=== PATIENT | female | born 1980 | race Caucasian/White ===

== ENCOUNTER 2024-09-27 12:30 | Outpatient (CLI) | payer BC | END 2024-09-27 12:31 | disposition home or self-care (01) | LOC: CSHRAD 12:30 | PROVIDERS: ATTEND Family Medicine Sports Medicine | DX: M25.572 Pain in left ankle and joints of left foot (principal) ==

== ENCOUNTER 2024-10-19 14:47 | Outpatient (CLI) | payer BC | END 2024-10-19 14:48 | disposition home or self-care (01) | LOC: CSHRAD 14:47 | PROVIDERS: ATTEND Family Medicine Sports Medicine | DX: M25.572 Pain in left ankle and joints of left foot (principal) ==

== ENCOUNTER 2025-09-05 02:36 | Day surgery (SDC) | payer BC ==
[2025-09-05 03:11] VITALS: BMI 42.5
[2025-09-05 03:48] LABS: Protein, Urine Random Quant Less than 10 mg/dL (1-14)
[2025-09-05 05:31] LABS: #Basophils 0.03 10x3/uL (0.0-0.2); #Eosinophils Less than 0.03 10x3/uL (0.0-0.5); #Monocytes 0.79 10x3/uL (0.0-1.1); #Neutrophils 5.85 10x3/uL (1.5-8.4); %Basophils 0.4 % (0.0-2.0); %Eosinophils 0.0 % (0.0-6.0); %Lymphocytes 18.6 % (18.0-47.0); %Monocytes 9.6 % (0.0-10.0); %Neutrophils 70.9 % (40.0-75.0); Hematocrit 29.1 % (34.9-44.5); Hemoglobin 9.9 g/dL (12.0-15.5); Mean Corpuscular Hemoglobin 31.1 pg (27.0-33.0); Mean Corpuscular Volume 91.5 fL (81.6-98.3); Platelet Count 274 10x3/uL (150-450); Red Blood Cell (RBC) Count 3.18 10x6/uL (3.90-5.03); White Blood Cell (WBC) Count 8.24 10x3/uL (3.5-10.5)
[2025-09-05 05:47] LABS: ALT (SGPT) 11 U/L (Less than 34); AST (SGOT) 22 U/L (11-34); Albumin 2.5 g/dL (3.1-4.5); Alkaline Phosphatase 39 U/L (40-110); Anion Gap 8 mmol/L (10-20); BUN (Urea Nitrogen) 5 mg/dL (7.0-18.7); Bilirubin, Total 0.2 mg/dL (0.3-1.2); Calc. Creatinine Clearance 311 mL/min (70-130); Calcium 8.6 mg/dL (7.8-10.44); Carbon Dioxide 26 mmol/L (22-29); Chloride 106 mmol/L (98-107); Globulin 3.1 g/dL (2.4-3.5); Glucose 89 mg/dL (70-105); Potassium 3.6 mmol/L (3.5-5.1); Sodium 136 mmol/L (136-145)
== END 2025-09-05 06:00 | disposition home or self-care (01) ==
LOC: CSHLD/OP 02:36
PROVIDERS: ATTEND Obstetrics & Gynecology
DX: O99.891 Other specified diseases and conditions complicating pregnancy (principal); R03.0 Elevated blood-pressure reading, without diagnosis of hypertension; O09.522 Supervision of elderly multigravida, second trimester; O34.211 Maternal care for low transverse scar from previous cesarean delivery; O99.342 Other mental disorders complicating pregnancy, second trimester; F41.9 Anxiety disorder, unspecified; Z3A.22 22 weeks gestation of pregnancy; Z79.899 Other long term (current) drug therapy
CPT/HCPCS: 36415; 80053; 82570; 84156; 85025; 99284

== ENCOUNTER 2025-10-03 02:12 | Day surgery (SDC) | payer BC ==
[2025-10-03 02:28] VITALS: BMI 44.4
[2025-10-03] MEDS ORDERED: hydrALAZINE 20 MG/ML VIAL SLOW IVP PRN (03:12)
[2025-10-03 03:31] LABS: Protein, Urine Random Quant Less than 10 mg/dL (1-14)
[2025-10-03 03:40] LABS: #Basophils 0.03 10x3/uL (0.0-0.2); #Eosinophils 0.26 10x3/uL (0.0-0.5); #Monocytes 0.83 10x3/uL (0.0-1.1); #Neutrophils 5.74 10x3/uL (1.5-8.4); %Basophils 0.3 % (0.0-2.0); %Eosinophils 3.0 % (0.0-6.0); %Lymphocytes 21.0 % (18.0-47.0); %Monocytes 9.4 % (0.0-10.0); %Neutrophils 65.3 % (40.0-75.0); Hematocrit 28.1 % (34.9-44.5); Hemoglobin 9.2 g/dL (12.0-15.5); Mean Corpuscular Hemoglobin 29.5 pg (27.0-33.0); Mean Corpuscular Volume 90.1 fL (81.6-98.3); Platelet Count 259 10x3/uL (150-450); Red Blood Cell (RBC) Count 3.12 10x6/uL (3.90-5.03); White Blood Cell (WBC) Count 8.80 10x3/uL (3.5-10.5)
[2025-10-03 03:44] LABS: ALT (SGPT) 10 U/L (Less than 34); AST (SGOT) 14 U/L (11-34); Albumin 2.5 g/dL (3.1-4.5); Alkaline Phosphatase 41 U/L (40-110); Anion Gap 9 mmol/L (10-20); BUN (Urea Nitrogen) 5 mg/dL (7.0-18.7); Bilirubin, Total 0.2 mg/dL (0.3-1.2); Calc. Creatinine Clearance 346 mL/min (70-130); Calcium 9.0 mg/dL (7.8-10.44); Carbon Dioxide 25 mmol/L (22-29); Chloride 106 mmol/L (98-107); Globulin 3.1 g/dL (2.4-3.5); Glucose 80 mg/dL (70-105); Potassium 3.6 mmol/L (3.5-5.1); Sodium 136 mmol/L (136-145)
== END 2025-10-03 04:17 | disposition home or self-care (01) ==
LOC: CSHLD/OP 02:12
PROVIDERS: ATTEND Obstetrics & Gynecology
DX: O13.2 Gestational [pregnancy-induced] hypertension without significant proteinuria, second trimester (principal); O09.522 Supervision of elderly multigravida, second trimester; O34.211 Maternal care for low transverse scar from previous cesarean delivery; Z3A.26 26 weeks gestation of pregnancy; Z67.40 Type O blood, Rh positive; Z79.82 Long term (current) use of aspirin; Z79.899 Other long term (current) drug therapy
CPT/HCPCS: 36415; 80053; 82570; 84156; 85025; 99283

== ENCOUNTER 2025-10-18 19:40 | Day surgery (SDC) | payer BC ==
[2025-10-18 20:21] VITALS: BMI 45.9
[2025-10-18 21:35] LABS: #Basophils 0.03 10x3/uL (0.0-0.2); #Eosinophils Less than 0.03 10x3/uL (0.0-0.5); #Monocytes 1.09 10x3/uL (0.0-1.1); #Neutrophils 7.14 10x3/uL (1.5-8.4); %Basophils 0.3 % (0.0-2.0); %Eosinophils 0.1 % (0.0-6.0); %Lymphocytes 17.0 % (18.0-47.0); %Monocytes 10.9 % (0.0-10.0); %Neutrophils 71.1 % (40.0-75.0); Hematocrit 26.2 % (34.9-44.5); Hemoglobin 8.6 g/dL (12.0-15.5); Mean Corpuscular Hemoglobin 29.3 pg (27.0-33.0); Mean Corpuscular Volume 89.1 fL (81.6-98.3); Platelet Count 253 10x3/uL (150-450); Red Blood Cell (RBC) Count 2.94 10x6/uL (3.90-5.03); White Blood Cell (WBC) Count 10.04 10x3/uL (3.5-10.5)
[2025-10-18 21:52] LABS: ALT (SGPT) 11 U/L (Less than 34); AST (SGOT) 18 U/L (11-34); Albumin 2.4 g/dL (3.1-4.5); Alkaline Phosphatase 47 U/L (40-110); Anion Gap 6 mmol/L (10-20); BUN (Urea Nitrogen) 6 mg/dL (7.0-18.7); Bilirubin, Total 0.2 mg/dL (0.3-1.2); Calc. Creatinine Clearance 350 mL/min (70-130); Calcium 8.5 mg/dL (7.8-10.44); Carbon Dioxide 26 mmol/L (22-29); Chloride 106 mmol/L (98-107); Globulin 3.2 g/dL (2.4-3.5); Glucose 115 mg/dL (70-105); Potassium 3.4 mmol/L (3.5-5.1); Sodium 135 mmol/L (136-145)
[2025-10-18 22:04] LABS: Troponin I Less than 0.010 ng/mL (< 0.028)
== END 2025-10-18 22:42 | disposition home or self-care (01) ==
LOC: CSHLD/OP 19:40
PROVIDERS: ATTEND Obstetrics & Gynecology
DX: O14.03 Mild to moderate pre-eclampsia, third trimester (principal); O10.913 Unspecified pre-existing hypertension complicating pregnancy, third trimester; O99.213 Obesity complicating pregnancy, third trimester; O99.891 Other specified diseases and conditions complicating pregnancy; F90.9 Attention-deficit hyperactivity disorder, unspecified type; F41.8 Other specified anxiety disorders; G47.33 Obstructive sleep apnea (adult) (pediatric); Z67.40 Type O blood, Rh positive; Z3A.28 28 weeks gestation of pregnancy
CPT/HCPCS: 36415; 82570; 83880; 84156; 84484; 85025; 99285